=== PATIENT | male | born 1970 | race Caucasian/White ===

== ENCOUNTER → 2019-03-18 | Outpatient (CLI) | payer BC, OTHER ==
--- NOTE | 2019-03-18 10:27 | Diagnostic Imaging Report ---
PROCEDURE: MRI left joint lower extremity without contrast. TECHNIQUE: Multiplanar, multisequence non contrast-enhanced MRI of the left lower extremity was accomplished. INDICATION: Knee pain. COMPARISON: There are no prior studies available for comparison. FINDINGS: On the proton dense fat saturated sagittal series there is a broad band of increased signal extending obliquely through the posterior horn of the medial meniscus. This would be consistent with a tear. The lateral meniscus is intact. The anterior and posterior cruciate ligaments, the quadriceps and infrapatellar tendons show no sign of an acute injury. The medial collateral ligament is intact but there is edema/inflammation about the MCL. The fibular collateral ligament, the biceps femoris tendon, the iliotibial band and the medial and lateral retinaculum show no sign of an acute injury. The knee joint is fairly well maintained. However there is mild bone edema involving the medial femoral condyle and medial proximal tibia. This may be related to mild degenerative disease secondary to the injury to the medial meniscus. There is a small joint effusion present. There is also a prominent 1.8 x 4.6 cm Ponce's cyst. IMPRESSION: 1. There is a broad tear involving the posterior horn of the medial meniscus. The lateral meniscus is intact. 2. There is edema/inflammation about the medial collateral ligament but there is no evidence for a tear of the MCL. The other major ligaments and tendons are intact. 3. The small areas of bone edema involving the medial femoral condyle and medial proximal tibia may be related to degenerative disease secondary to the injury to the medial meniscus. There is no acute bony abnormality noted otherwise. 4. There is a small joint effusion present and a prominent Ponce's cyst. Dictated by: Dictated on workstation # [id number]
== END ==
LOC: RAD 07:26
PROVIDERS: ATTEND Nurse Practitioner Family
DX: S83.242A Other tear of medial meniscus, current injury, left knee, initial encounter (principal); M71.22 Synovial cyst of popliteal space [Baker], left knee; M25.462 Effusion, left knee; M89.9 Disorder of bone, unspecified
CPT/HCPCS: 73721

== ENCOUNTER → 2019-11-18 | Outpatient (CLI) | payer BC ==
--- NOTE | 2019-11-18 10:59 | Diagnostic Imaging Report ---
INDICATION: Left kidney stones. TIME OF EXAM 10:19 AM COMPARISON: No prior studies are available for comparison. A left-sided double-J nephroureteral stent is noted. No definite calculi along the course of the stent are identified. No calculi are seen overlying the renal shadows. Bowel gas pattern is unremarkable. IMPRESSION: No definite radiopaque urinary tract calculi are detected. Dictated by: Dictated on workstation # [id number]
== END ==
LOC: RAD FS 10:06
PROVIDERS: ATTEND Urology
DX: N20.0 Calculus of kidney (principal)
CPT/HCPCS: 74018